=== PATIENT | male | born 1970 ===

== ENCOUNTER 2017-05-08 13:17 | Emergency (ER) | payer SELFPAY ==
[~2017-05-08] VITALS: Ht 185.4 cm; Wt 83.9 kg
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
--- NOTE | 2017-05-08 14:40 | RADIOLOGY REPORT ---
EXAMINATION: XR KNEE, RIGHT CLINICAL INFORMATION: Knee pain and swelling. COMPARISON: No relevant prior imaging available. TECHNIQUE: Four views of the right knee. FINDINGS: There is no acute fracture or dislocation. Medial, lateral, and patellofemoral compartments are intact. There is a small suprapatellar joint effusion. Soft tissues are otherwise unremarkable. IMPRESSION: Small suprapatellar joint effusion. Otherwise unremarkable radiographs of the right knee.
[2017-05-08] MEDS ORDERED: PERCOCET 5-3251 EACH PO (15:27)
[2017-05-08] MEDS ORDERED: IBUPROFEN600 M1 PO (15:27)
[2017-05-08] MEDS ORDERED: ZITHROMAX250 M2 PO (15:27)
[2017-05-08] MEDS ORDERED: PROAIR HFA8.5 GM INH (15:27)
[2017-05-08 15:48] VITALS: BP 136/90
== END 2017-05-08 15:50 ==
LOC: ERH 13:17
DX: S83.401A Sprain of unspecified collateral ligament of right knee, initial encounter (principal); J40 Bronchitis, not specified as acute or chronic; I10 Essential (primary) hypertension; X58.XXXA Exposure to other specified factors, initial encounter; Y92.9 Unspecified place or not applicable
CPT/HCPCS: 73562-RT; J0456